=== PATIENT | male | born 1990 | race African-American/Black ===

== ENCOUNTER 2016-10-01 10:07 | Emergency (ER) | payer OTHER ==
[~2016-10-01 10:07] MED LIST: FLOMAX0.4 M1 PO; LORTAB 5/500 TA1 TA1 PO; PERCOCET 5-3251 TAB PO; PHENERGAN25 M1 PO
[2016-10-01 10:14] LABS: INFLUENZA A NEG (NEG); INFLUENZA B NEG (NEG)
== END 2016-10-01 11:38 | disposition home or self-care (01) ==
LOC: CED 10:07
PROVIDERS: Student in an Organized Health Care Education/Training Program
DX: J02.0 Streptococcal pharyngitis (principal); J45.909 Unspecified asthma, uncomplicated; Z90.49 Acquired absence of other specified parts of digestive tract; Z88.0 Allergy status to penicillin; F17.200 Nicotine dependence, unspecified, uncomplicated
CPT/HCPCS: 87804; 99283